=== PATIENT | male | born 1955 | race Two or more races ===

== ENCOUNTER 2018-10-08 18:08 | Inpatient (IN) | payer MEDICAID ==
[~2018-10-08] VITALS: Ht 170.2 cm; Wt 56.7 kg
--- NOTE | 2018-10-08 18:34 | NUR ---
BIB SON FOR "Abdominal/Diarrhea x3days, fever x2days. Yesterday passed out. Today feel worse. Weak". TO ER BED 8, HOOKED TO MONITOR, CHANGED TO GOWN, PROVIDED W WARM BLANKET, PT AOx4 , NOT IN DISTRESS, DR DOMINGUEZ AT BEDSIDE
[2018-10-08 18:59] LABS: BASOPHILS % (AUTO) 0.3 % (0.0-2.0); EOSINOPHILS % (AUTO) 0.1 % (0.0-6.0); HEMATOCRIT 46 % (39-51); HEMOGLOBIN 15.7 g/dL (13.5-17.5); LYMPHOCYTES # (AUTO) 1.2 /CMM (0.8-4.8); LYMPHOCYTES % (AUTO) 9.2 % (20.0-44.0); MEAN CORPUSCULAR HGB CONC 34 g/dl (31.0-36.0); MEAN CORPUSCULAR VOLUME 98 fL (80-96); MONOCYTES # (AUTO) 0.6 /CMM (0.1-1.30); MONOCYTES % (AUTO) 4.5 % (2.0-12.0); NEUTROPHILS # (AUTO) 11.3 /CMM (1.8-8.9); NEUTROPHILS % (AUTO) 85.9 % (43.0-81.0); PLATELET COUNT (AUTO) 193 /CMM (150-450); RED BLOOD CELL COUNT(AUTO) 4.65 MIL/uL (4.5-6.0); WHITE BLOOD COUNT (AUTO) 13.2 K/uL (4.3-11.0)
[2018-10-08] MEDS ORDERED: IV NS 0.9% 1,000 ML BAG IV ONE (19:00)
[2018-10-08 19:10] LABS: CALCIUM, SERUM 8.9 mg/dL (8.5-10.1); CARBON DIOXIDE 25 mmol/L (21-32); CHLORIDE 95 mmol/L (98-107); CREATININE 1.3 mg/dL (0.6-1.3); GLUCOSE 124 mg/dL (74-106); POTASSIUM 3.7 mmol/L (3.5-5.1); SODIUM SERUM 131 mmol/L (136-145); UREA NITROGEN, BLOOD 21 mg/dL (7-18)
[2018-10-08 19:15] LABS: ALANINE AMINOTRANSFERASE 19 U/L (12-78); ALBUMIN 3.7 g/dL (3.4-5.0); ALKALINE PHOSPHATASE 72 U/L (46-116); ASPARTATE AMINOTRANSFERASE 15 U/L (15-37); BILIRUBIN,DIRECT 0.1 mg/dL (0.0-0.2); BILIRUBIN,TOTAL 0.6 mg/dL (0.2-1.0); TOTAL PROTEIN, SERUM 8.4 g/dL (6.4-8.2)
--- NOTE | 2018-10-08 19:16 | NUR ---
REPORT GIVEN TO ABE MIRZA FOR CHRIS
--- NOTE | 2018-10-08 19:17 | NUR ---
PT RECEIVED FROM YUKI ISABEL FOR CHRIS. PT IN BED. NAD NOTED. AAOX4. VSS
--- NOTE | 2018-10-08 19:26 | NUR ---
PT AMBULATED TO BATHROOM ON STEADY GAIT WITH SBA
--- NOTE | 2018-10-08 19:30 | NUR ---
URINE COLLECTED FORM PT AND SENT TO LAB
[2018-10-08 19:34] LABS: APPEARANCE,URINE Slightly Cloudy (CLEAR); BILIRUBIN,URINE SMALL (NEGATIVE); BLOOD, URINE Large Ery/uL (NEGATIVE); COLOR,URINE Yellow (YELLOW); KETONES,URINE Negative (NEGATIVE); LEUKOCYTE ESTERASE ,URINE Negative (NEGATIVE); NITRITE, URINE Negative (NEGATIVE); PH,URINE 5.5 (5.0-8.0); PROTEIN,URINE >=300 mg/dl (NEGATIVE); UGLUCOSE Negative (NEGATIVE); UROBILINOGEN,URINE 0.2 EU/dL (0.2)
[2018-10-08 19:43] LABS: BACTERIA,URINE Few /HPF (None Seen); FINE GRANULAR CASTS,URINE Moderate /LPF (None Seen); HYALINE CASTS, URINE Moderate /LPF (None Seen); SQUAMOUS EPITHELIAL CELL,UR Few /HPF (None Seen)
[2018-10-08 20:00] VITALS: BP 124/70
--- NOTE | 2018-10-08 20:11 | NUR ---
PT BACK FROM RADIOLOGY
[2018-10-08] MEDS ORDERED: PIPERACILLIN /TAZOBACTAM 3.375 G VIAL IV ONE (21:13)
--- NOTE | 2018-10-08 21:24 | NUR ---
CALLED HOUSE [facility] FOR TELE BED
--- NOTE | 2018-10-08 21:27 | NUR ---
BED 120-2 RECIEVED
[2018-10-08] MEDS ORDERED: PIPERACILLIN /TAZOBACTAM 3.375 G in IV D5W 50 ML IV ONE (21:30)
--- NOTE | 2018-10-08 21:42 | NUR ---
BED ASSIGNMENT CHANGED TO 117-1
--- NOTE | 2018-10-08 21:50 | NUR ---
REPORT GIVEN TO YUKI HATCH FOR CHRIS. PT GOING TO 117-1
[2018-10-08 22:00] VITALS: BP 124/70
[2018-10-08] MEDS ORDERED: ONDANSETRON HCL/PF 4 MG/2 ML VIAL IVP PRN (22:00)
[2018-10-08] MEDS ORDERED: MAG HYDROX/AL HYDROX/SIMETH 30 ML UDC PO PRN (22:00)
[2018-10-08] MEDS ORDERED: MAGNESIUM HYDROXIDE 30 ML UDC PO PRN (22:00)
[2018-10-08] MEDS ORDERED: HYDROCODONE/APAP 10/325MG 1 EA TABLET PO PRN (22:00)
[2018-10-08] MEDS ORDERED: MORPHINE SULFATE INJ 2 MG/ML DISP.SYRIN IV PRN (22:00)
[2018-10-08] MEDS ORDERED: Z GUARD REMEDY 2 OZ OINT TP PRN (22:00)
--- NOTE | 2018-10-08 22:20 | NUR ---
MS/RN NOTES 63 YEAR OLD MALE PATIENT ADMITTED TO MED SURG UNIT WITH THE DX OF COLITIS. PATIENT ARRIVED VIA GURNEY, PATIENT NOTED WITH NO S/S OF ACUTE DISTRESS, RESPIRATION EVEN AND UNLABORED. NO SOB NOTED. PATIENT A/O X4, DENIES ANY PAIN OR DISCOMFORT AT THIS TIME. SKIN WARM TO TOUCH, ABDOMEN SOFT NON DISTENDED, WITH BOWEL SOUNDS PRESENT X4 QUADRANTS. AND DAUGHTER AT THE BED SIDE. BODY ASSESSMENT DONE. SAFETY MAINTAINED, BED AT THE LOWEST POSITION, LOCKED. CALL LIGHT WITHIN REACH. WILL CONTINUE TO MONITOR PATIENT PER PLAN OF CARE.
[2018-10-08] MEDS: IV NS 0.9% 1,000 ML IV PRN (23:12)
[2018-10-08] MEDS: ACETAMINOPHEN 325 MG TABLET PO PRN (23:39)
[2018-10-09] MEDS ORDERED: PIPERACILLIN /TAZOBACTAM 3.375 G in IV D5W 50 ML IV SCH ×2
[2018-10-09] MEDS ORDERED: PIPERACILLIN /TAZOBACTAM 3.375 G in IV NS 0.9% 50 ML IV SCH (03:00)
[2018-10-09] MEDS ORDERED: PIPERACILLIN /TAZOBACTAM 3.375 G in IV NS 0.9% 50 ML IV ONE (03:03)
[2018-10-09] MEDS ORDERED: PIPERACILLIN /TAZOBACTAM 3.375 G VIAL IV ONE (03:11)
[2018-10-09 04:00] VITALS: BP 100/62
--- NOTE | 2018-10-09 06:45 | NUR ---
M/S RN NOTES PATIENT IN BED, SLEEPING COMFORTABLY AT THIS TIME. NO S/S OF ACUTE DISTRESS NOTED, RESPIRATION, EVEN AND UNLABORED. NO SOB NOTED. NO C/O ANY PAIN OR DISCOMFORT NOTED AT THIS TIME. ALL DUE MEDS GIVEN ORDERED. PATIENT TOLERATED WELL. IV SITE ON RFA NOTED WITH NO S/S OF INFECTION/INFILTRATION. RUNNING WITH NS @75/HR. SAFETY MAINTAINED, BED AT THE LOWEST POSITION, LOCKED. WILL ENDORSE TO AM SHIFT NURSE OF [facility].
--- NOTE | 2018-10-09 07:10 | NUR ---
MS RN OPENING NOTES RECEIVED PT LYING ON BED,ALERT/ORIENTED X4.ON ROOM AIR,TOLERATING WELL.NO SOB AND ACUTE DISTRESS NOTED.MILD PAIN NOTED /.REFUSED PAIN MEDS.IV LINE IS ON RIGHT FA G18 WITH IV FLUIDS IS RUNNING .9%NS @75CC/HR.SITE IS CLEAN,DRY AND INTACT.NO INFILTRATION NOTED.BED IS IN LOW POSITION AND LOCKED,CALL LIGHT IS WITHIN REACH.WILL CONTINUE TO MONITOR THE PT CLOSELY
[2018-10-09 07:14] LABS: BASOPHILS % (AUTO) 0.4 % (0.0-2.0); EOSINOPHILS % (AUTO) 1.8 % (0.0-6.0); HEMATOCRIT 41 % (39-51); HEMOGLOBIN 13.9 g/dL (13.5-17.5); LYMPHOCYTES # (AUTO) 1.3 /CMM (0.8-4.8); LYMPHOCYTES % (AUTO) 13.6 % (20.0-44.0); MEAN CORPUSCULAR HGB CONC 34 g/dl (31.0-36.0); MEAN CORPUSCULAR VOLUME 99 fL (80-96); MONOCYTES # (AUTO) 0.6 /CMM (0.1-1.30); MONOCYTES % (AUTO) 6.1 % (2.0-12.0); NEUTROPHILS # (AUTO) 7.3 /CMM (1.8-8.9); NEUTROPHILS % (AUTO) 78.1 % (43.0-81.0); PLATELET COUNT (AUTO) 154 /CMM (150-450); RED BLOOD CELL COUNT(AUTO) 4.11 MIL/uL (4.5-6.0); WHITE BLOOD COUNT (AUTO) 9.4 K/uL (4.3-11.0)
[2018-10-09 07:32] LABS: CALCIUM, SERUM 8.2 mg/dL (8.5-10.1); CREATININE 1.2 mg/dL (0.6-1.3); MAGNESIUM 1.7 mg/dL (1.8-2.4); PHOSPHORUS 3.1 mg/dL (2.5-4.9); POTASSIUM 3.5 mmol/L (3.5-5.1)
[2018-10-09 07:45] LABS: THYROID STIMULATING HORMONE 4.549 uIU/mL (0.358-3.74)
[2018-10-09 08:00] VITALS: BP 108/56
[2018-10-09] MEDS: PANTOPRAZOLE 40 MG TABLET.DR PO SCH (08:13)
[2018-10-09] MEDS ORDERED: LISI-603 PO (08:22)
[2018-10-09] MEDS ORDERED: TRAM50TA2 PO (08:22)
[2018-10-09] MEDS: ACETAMINOPHEN 325 MG TABLET PO PRN (08:29)
[2018-10-09] MEDS ORDERED: PIPERACILLIN /TAZOBACTAM 3.375 G in IV D5W 100 ML IV SCH (09:00)
[2018-10-09] MEDS: Magnesium 1GM/D5W 100ML PREMIX 100 ML IV SCH ×2 (11:59→13:33)
[2018-10-09] MEDS ORDERED: CEFTRIAXONE 1 G VIAL IV SCH (15:00)
[2018-10-09 16:00] VITALS: BP 118/73
[2018-10-09] MEDS: METRONIDAZOLE 500MG/ NS 100ML 500 MG in PREMIX 1 EA IV SCH ×2 (16:27→23:09)
[2018-10-09] MEDS: CEFTRIAXONE 1 G in IV D5W 50 ML IV SCH (18:17)
[2018-10-09 20:00] VITALS: BP 105/68
--- NOTE | 2018-10-09 20:01 | NUR ---
MS RN CLOSING NOTES PT IS LYING ON BED,MILD PAIN NOTED ON LOWER ABDOMEN.SAID WILL TAKE PAIN MEDS LATE NIGHT.RESPIRATION IS EVEN AND NONLABORED.ENDORSED TO EMPLOYEE RELATIONS ASSISTANT RN [employer] FOR [facility]RIS.
[2018-10-09] MEDS: HYDROCODONE/APAP 5/325MG 1 EACH TABLET PO PRN (21:37)
[2018-10-09] MEDS: IV NS 0.9% 1,000 ML IV PRN (21:59)
[2018-10-10 04:00] VITALS: BP 112/63
[2018-10-10] MEDS: METRONIDAZOLE 500MG/ NS 100ML 500 MG in PREMIX 1 EA IV SCH ×3 (07:03→22:58)
[2018-10-10 07:14] LABS: BASOPHILS % (AUTO) 0.4 % (0.0-2.0); EOSINOPHILS % (AUTO) 4.5 % (0.0-6.0); HEMATOCRIT 35 % (39-51); HEMOGLOBIN 12.1 g/dL (13.5-17.5); LYMPHOCYTES # (AUTO) 1.6 /CMM (0.8-4.8); LYMPHOCYTES % (AUTO) 30.6 % (20.0-44.0); MEAN CORPUSCULAR HGB CONC 35 g/dl (31.0-36.0); MEAN CORPUSCULAR VOLUME 97 fL (80-96); MONOCYTES # (AUTO) 0.5 /CMM (0.1-1.30); MONOCYTES % (AUTO) 9.4 % (2.0-12.0); NEUTROPHILS # (AUTO) 2.8 /CMM (1.8-8.9); NEUTROPHILS % (AUTO) 55.1 % (43.0-81.0); PLATELET COUNT (AUTO) 131 /CMM (150-450); RED BLOOD CELL COUNT(AUTO) 3.62 MIL/uL (4.5-6.0); WHITE BLOOD COUNT (AUTO) 5.1 K/uL (4.3-11.0)
[2018-10-10 07:27] LABS: CALCIUM, SERUM 7.9 mg/dL (8.5-10.1); CREATININE 0.8 mg/dL (0.6-1.3); MAGNESIUM 2.2 mg/dL (1.8-2.4); PHOSPHORUS 2.3 mg/dL (2.5-4.9); POTASSIUM 3.4 mmol/L (3.5-5.1)
--- NOTE | 2018-10-10 07:35 | NUR ---
RN NOTE: RECEIVED PATIENT IN BED, AWAKE, ALERT AND VERBALLY RESPONSIVE. RESPIRATION EVEN AND UNLABORED SATURATING 99% IN ROOM AIR. DENIED ANY PAIN. HOB ELEVATED. (R) FA IV SITE NOTED PATENT AND INTACT INFUSING NS @75ML/HR. ON C. DIFF ISOLATION AND PENDING RESULT FOR NOW. BED ALARMED AND LOCKED AT ALL TIMES AND ON LOWEST POSITION. CALL LIGHT WITHIN REACH. NEEDS ANTICIPATED.
[2018-10-10 08:00] VITALS: BP 127/68
[2018-10-10] MEDS: PANTOPRAZOLE 40 MG TABLET.DR PO SCH (08:00)
[2018-10-10] MEDS ORDERED: POTASSIUM CHLORIDE 20 MEQ POWDER PACKET PO SCH (11:30)
[2018-10-10] MEDS ORDERED: K PHOS NEUTRAL 250 MG TABLET PO ONE (14:00)
[2018-10-10] MEDS: CEFTRIAXONE 1 G in IV D5W 50 ML IV SCH (15:42)
[2018-10-10 16:00] VITALS: BP 121/75
--- NOTE | 2018-10-10 16:06 | NUR ---
RN NOTE: REPORTED TO BRE THAKKAR NP ABOUT THE PATIENT'S REQUEST IF IT'S POSSIBLE FOR HIM TO GO HOME TODAY. PER FUEL TESTING TECHNICIAN, NO DISCHARGE ORDER FOR NOW. PENDING RESULT FOR THE STOOL CULTURE. C. DIFF STOOL WAS NEGATIVE, Doris THAKKAR NP MADE AWARE. FUEL TESTING TECHNICIAN WAS ALSO ASKED IF IT'S OK TO ADVANCE THE PATIENT'S DIET BECAUSE HE WAS STILL ON CLEAR LIQUID AND SO FAR NO NAUSEA/VOMITING NOTED WITH THE PATIENT. ADIEL THAKKAR WITH ORDER TO ADVANCE DIET TO CARDIAC DIET STARTING DINNER TIME. ORDER, NOTED AND CARRIED OUT. PATIENT MADE AWARE.
--- NOTE | 2018-10-10 19:18 | NUR ---
RN NOTE: BEDSIDE REPORT GIVEN TO PM SHIFT NURSE FOR CONTINUITY OF CARE. PATIENT REMAINED AWAKE, ALERT AND VERBALLY RESPONSIVE.
--- NOTE | 2018-10-10 19:20 | NUR ---
RN M/S NOTE PATIENT IS AOX4, RESTING WITH HOB ELEVATED ON ROOM AIR, NO PAIN NOTED, NO S/SX OF RESPIRATORY OR CARDIAC DISTRESS, SKIN KEPT CLEAN AND DRY, LFA #22G WITH NS AT 75ML/HR, PATENT FLUSHING WELL, SKIN KEPT CLEAN AND DRY, SAFETY MAINTAINED AT ALL TIMES, BED IN LOW, LOCKED POSITION, CALL LIGHT WITHIN REACH, WILL CONTINUE TO MONITOR FOR ANY CHANGES IN CONDITION.
[2018-10-10 20:00] VITALS: BP 111/69
[2018-10-10] MEDS: IV NS 0.9% 1,000 ML IV PRN (20:49)
[2018-10-10] MEDS: HYDROCODONE/APAP 5/325MG 1 EACH TABLET PO PRN (21:28)
[2018-10-11 04:00] VITALS: BP 130/78
[2018-10-11] MEDS: METRONIDAZOLE 500MG/ NS 100ML 500 MG in PREMIX 1 EA IV SCH (07:06)
--- NOTE | 2018-10-11 07:30 | NUR ---
INITIAL 63 YEAR OLD MALE PATIENT ADMITTED TO MED SURG UNIT WITH THE DX OF COLITIS. PATIENT ALERT AND ORIENTED X 4 STOOL CULTURE PENDING NEGATIVE FOR C DIFF NO NOTED S/S OF ACUTE DISTRESS, RESPIRATION EVEN AND UNLABORED. NO SOB NOTED. PT, DENIES ANY PAIN OR DISCOMFORT AT THIS TIME. SKIN WARM TO TOUCH, ABDOMEN SOFT NON DISTENDED, WITH BOWEL SOUNDS PRESENT X4 QUADRANTS. AND DAUGHTER AT THE BED SIDE. BODY ASSESSMENT DONE. SAFETY MAINTAINED, BED AT THE LOWEST POSITION, LOCKED. CALL LIGHT WITHIN REACH. WILL CONTINUE TO MONITOR PATIENT PER PLAN OF CARE.
[2018-10-11 08:00] VITALS: BP_SYST 130; BP_SYST 150; BP_DIAS 72; BP_DIAS 78
[2018-10-11 08:05] LABS: BASOPHILS % (AUTO) 0.4 % (0.0-2.0); EOSINOPHILS % (AUTO) 3.3 % (0.0-6.0); HEMATOCRIT 37 % (39-51); HEMOGLOBIN 12.3 g/dL (13.5-17.5); LYMPHOCYTES # (AUTO) 1.7 /CMM (0.8-4.8); MEAN CORPUSCULAR HGB CONC 34 g/dl (31.0-36.0); MEAN CORPUSCULAR VOLUME 98 fL (80-96); MONOCYTES # (AUTO) 0.5 /CMM (0.1-1.30); MONOCYTES % (AUTO) 9.2 % (2.0-12.0); NEUTROPHILS # (AUTO) 2.8 /CMM (1.8-8.9); NEUTROPHILS % (AUTO) 54.1 % (43.0-81.0); PLATELET COUNT (AUTO) 146 /CMM (150-450); RED BLOOD CELL COUNT(AUTO) 3.72 MIL/uL (4.5-6.0); WHITE BLOOD COUNT (AUTO) 5.2 K/uL (4.3-11.0)
[2018-10-11] MEDS: PANTOPRAZOLE 40 MG TABLET.DR PO SCH (08:23)
[2018-10-11 08:26] LABS: CALCIUM, SERUM 8.6 mg/dL (8.5-10.1); CREATININE 0.8 mg/dL (0.6-1.3); MAGNESIUM 1.9 mg/dL (1.8-2.4); PHOSPHORUS 2.8 mg/dL (2.5-4.9); POTASSIUM 4.3 mmol/L (3.5-5.1)
[2018-10-11] MEDS ORDERED: CIPR-262 PO (10:37)
[2018-10-11] MEDS ORDERED: METR500T PO (10:37)
--- NOTE | 2018-10-11 11:08 | NUR ---
DISCHARGE PT DISCHARGED HOME WITH SPOUSE PROPERLY CLOTHED WALKING WITH STEADY GAIT GIVEN ACI, PRECRIPTION AND WILL FOLLOW UP WITH PCP PIV REMOVED WITH TIP INTACT.
--- NOTE | 2018-10-13 07:41 | NUR ---
ECHO REPORT IS DONE AWAITING FOR REPORT TO CROSS OVER TO [facility].
== END 2018-10-11 11:15 | disposition home or self-care (01) | DRG 720 ==
LOC: ER 18:20 → MEDSG1 21:29
PROVIDERS: ADMIT Nurse Practitioner Acute Care; ATTEND Registered Nurse
DX: A41.9 Sepsis, unspecified organism (principal); E87.1 Hypo-osmolality and hyponatremia; D72.829 Elevated white blood cell count, unspecified; R55 Syncope and collapse; E86.1 Hypovolemia; E86.0 Dehydration; R79.89 Other specified abnormal findings of blood chemistry; I71.4 Abdominal aortic aneurysm, without rupture; N28.1 Cyst of kidney, acquired; I10 Essential (primary) hypertension; M54.5 Low back pain; G89.29 Other chronic pain; F17.210 Nicotine dependence, cigarettes, uncomplicated; A09 Infectious gastroenteritis and colitis, unspecified; M19.90 Unspecified osteoarthritis, unspecified site
CPT/HCPCS: 36415; 70450-TC; 71045-TC; 80048-TC; 80061-TC; 80076-TC; 81000-TC; 83605-TC; 83735-TC; 84100-TC; 84443-TC; 84484-TC; 85025-TC; 85730-TC; 87040-TC; 87045-TC; 87081-TC; 87086-TC; 93307-TC; 93880-TC; A4216; G0378; J0696; J2543; J3475; J3490; J7030; J7060